=== PATIENT | female | born 1990 | race Caucasian/White ===

== ENCOUNTER 2020-11-07 20:04 | Emergency (ER) | payer OTHER ==
[~2020-11-07 20:04] MED LIST: BACTRIM DS TAB1 EACH PO; BUSPAR5 MG PO; CELEXA10 MG PO; FLEXERIL10 MG PO; PYRIDIUM100 MG PO
[2020-11-07 20:46] LABS: BASOPHIL 0.2 % (0-2); EOSINOPHIL 1.8 % (0-5); HCT 40.5 % (37.0-47.0); HGB 13.7 g/dl (12.5-16.0); LYMPHOCYTE 39.9 % (15-48); MCH 30.2 pg (25.0-31.0); MCHC 33.8 g/dL (32.0-36.0); MCV 89.2 fL (78.0-100.0); MPV 10.5 fL (6.0-9.5); NEUTROPHIL 50.9 % (41-80); NRBC 0; PLT 210 K/uL (150-400); RBC 4.54 M/uL (4.20-5.40); RDW 13.6 % (11.5-14.0); WBC 9.1 K/uL (4.0-10.5)
[2020-11-07 20:46] LABS: BILIRUBIN NEGATIVE (NEGATIVE); BLOOD NEGATIVE Ery/uL (NEGATIVE); CLARITY CLEAR (CLEAR); COLOR YELLOW (YELLOW); GLUCOSE (U) NORMAL (NORMAL); LEUKOCYTES NEGATIVE Leu/uL (NEGATIVE); NITRITE NEGATIVE (NEGATIVE); PROTEIN NEGATIVE (NEGATIVE); UROBILINOGEN 0.2 mg/dL (0.2-1.0); pH 6.5 (5.0-9.0)
[2020-11-07 21:11] LABS: LACTIC ACID 0.7 mmol/L (0.4-1.9)
[2020-11-07 21:12] LABS: ALBUMIN 3.7 g/dL (3.4-5.0); BILIRUBIN - TOTAL 0.3 mg/dL (0.2-1.0); BUN/CREAT RATIO (CALC) 15.6 RATIO; CREATININE 0.77 mg/dL (0.51-0.95); GLOBULIN (CALCULATION) 3.7 g/dL; POTASSIUM 3.4 mmol/L (3.5-5.1); TOTAL PROTEIN 7.4 g/dL (6.4-8.2)
[2020-11-07] MEDS ORDERED: BENTYL10 MG PO (23:10)
[2020-11-07] MEDS ORDERED: ONDANSETRON ODT4 MG SL (23:10)
[2020-11-07] MEDS ORDERED: NORCO 5-325 TA1 EACH PO (23:10)
== END 2020-11-07 23:50 | disposition home or self-care (01) ==
LOC: FER 20:04
PROVIDERS: Emergency Medicine Emergency Medical Services
DX: R10.11 Right upper quadrant pain (principal); R11.0 Nausea; Z90.49 Acquired absence of other specified parts of digestive tract; Z98.51 Tubal ligation status; Z87.448 Personal history of other diseases of urinary system
CPT/HCPCS: 36415; 80053; 81003; 83605; 83690; 85025; J1170; J1885; J2405; J7030; Q9967